=== PATIENT | female | born 2005 | race Caucasian/White ===

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

== ENCOUNTER 2025-02-06 15:36 | Emergency (ER) | payer SELFPAY ==
[2025-02-06 15:44] VITALS: BP 106/70; PULSE 67; RESP 17; TEMP 36.5; O2SAT 100; BMI 35.0
[2025-02-06 16:14] LABS: Basophils # 0.1 10^3/uL (0.0-0.1); Basophils % 0.9 %; Eosinophils # 0.4 10^3/uL (0.0-0.8); Eosinophils % 3.2 %; Hematocrit 47.7 % (36-47); Lymphocytes # 3.2 10^3/uL (1.5-6.5); Lymphocytes % 25.8 %; Mean Corpuscular HGB Conc 33.3 g/dL (30-55); Mean Corpuscular Hemoglobin 29.1 pg (27-33); Mean Corpuscular Volume 87.4 fl (85-98); Mean Platelet Volume 10.4 fL (7.4-10.4); Monocytes # 0.7 10^3/uL (0.2-0.9); Monocytes % 5.3 %; Neutrophils # 8.12 10^3/uL (1.8-8.0); Neutrophils % 64.6 %; Nucleated Red Blood Cells % 0 %; Platelet Count 336 10^3/cmm (157-399); Red Blood Count 5.46 10^6/uL (3.85-5.65); Red Cell Distribution Width 13.3 % (12.1-15.1); White Blood Count 12.56 10^3/uL (4.5-13.0)
[2025-02-06 16:32] VITALS: BP 128/80; PULSE 81; RESP 16; O2SAT 98
[2025-02-06 16:40] LABS: Alanine Aminotransferase 13 U/L (0-33); Albumin Level 4.8 g/dL (3.5-5.2); Alkaline Phosphatase 80 U/L (35-105); Anion Gap 18.7 (5-19); Aspartate Amino Transferase 16 U/L (0-32); Blood Urea Nitrogen 11 mg/dL (6-20); Calcium 9.5 mg/dL (8.5-10.5); Carbon Dioxide 19 mmol/L (22-29); Chloride 104 mmol/L (98-107); Creatinine Clr Calc Pharmacy 120.2852; Globulin 3.2 g/dL (1.3-4.6); Glomerular Filtration Rate 92.4 mL/min (90-130); Glucose 81 mg/dL (65-115); Lipase 30 U/L (13-60); Osmolality Calculated 284 mOsm/kg (285-295); Potassium 3.7 mmol/L (3.5-5.1); Sodium 138 mmol/L (136-145); Total Bilirubin 0.4 mg/dL (0.15-1.2)
[2025-02-06] MEDS: ondansetron 2 mg/ML SDV 2 mL 4 MG IVP (16:47)
[2025-02-06] MEDS: sodium chloride 0.9% 1,000 ML 999 ML IV (16:47)
--- NOTE | 2025-02-06 16:53 | ED_ITS ---
Documented by User: Amaury Cordova DO 02/07/25 06:37 HPI - Nausea/Vomiting/Diarrhea 2 General: Chief complaint: Nausea/Vomiting/Diarrhea Stated complaint: NVD Time Seen by Provider: 02/06/25 16:09 History of Present Illness: 19-year-old female presents emergency ro om complaining epigastric pain intermittently for the last month she notes it improves when she vomits. She denies any medic easy melena hematemesis cough cramps no dysuria urgency or frequency. Associated nausea: Yes Associated symtoms: Reports nausea; Denies chest pain or dysuria Related Data Previous Rx's ?Medication ?Instructions ?Recorded nebulizers (Compact Compressor #1 ea 12/18/21 Nebulizer) omeprazole magnesium 10 mg oral 20 mg PO DAILY #30 ea 08/09/24 suspension,delayed release (Prilosec) escitalopram oxalate 10 mg tablet See Rx Instructions .Route 09/11/24 .COMPLEX #30 tabs etonogestrel 0.12 mg-ethinyl 1 vag ring vaginal .once a month 09/11/24 estradiol 0.015 mg/24 hr vaginal #3 ea ring (NuvaRing) ondansetron 4 mg disintegrating 4 mg PO Q8H PRN nausea and 02/06/25 tablet vomiting 5 days #30 tabs Allergies Allergy/AdvReac Type Severity Reaction Status Date / Time influenza virus vacc Allergy Mild rash Verified 09/11/24 10:00 trivalent, split (From Fluzone) Penicillins Allergy Mild Hives Verified 09/11/24 10:00 Alpha-Gal Allergy ALGY-Hives Verified 09/11/24 10:00 (Vhlmklwdv-Zcinj-5,3-Gala (Lzmhecofn-Rawmi-3,3-Galactose (Alph) Review of Systems 2 Const: Denies: fever(s) or chills Card: Denies: chest pain Resp: Denies: dyspnea GI: Reports: abdominal pain, nausea and vomiting : Denies: dysuria, urinary frequency or urinary urgency Musc: Denies: neck pain or back pain Skin/Breast: Denies: rash PFSH ED 2 PFSH: Medical History URI with cough and congestion Allergy to alpha-gal PCOS (polycystic ovarian syndrome) History of COVID-19 February No pertinent past medical history neghx: htn,dm,thyroid,dvt/pe Anxiety Asthma Surgical History No pertinent past surgical history Family History Grandfather Colon cancer Maternal great grandfather Diabetes Maternal grandfather Heart disease Maternal grandfather Hyperlipidemia Maternal grandfather Hypertension Maternal grandfather Brother Hypertension Grandmother Stroke Maternal grandmother Denies family history of Ovarian cancer Breast cancer Family history of thyroid problem Uterine cancer Social History Smoking and tobacco/nicotine status: never used tobacco/nicotine Physical Exam 2 Const: GENERAL APPEARANCE: cooperative ORIENTATION/CONSCIOUSNESS: Yes awake, Yes oriented to person, Yes oriented to place and Yes oriented to time HENMT: COMMON NORMALS: normocephalic, atraumatic and hearing grossly normal bilaterally HEAD & SCALP: normocephalic and atraumatic Resp: COMMON NORMALS: normal respiratory effort, No retractions, No use of accessory muscles and clear to auscultation bilaterally AUSCULTATION: clear to auscultation bilaterally Cardio: COMMON NORMALS: regular rate, regular rhythm and No murmurs present (Cardio) RATE: regular rate RHYTHM: regular rhythm GI: COMMON NORMALS: Soft to palpation and No hepatosplenomegaly present A USCULTATION: Yes normoactive bowel sounds PALPATION: Yes Soft to palpation, No Tenderness to palpation present (GI), No Guarding due to palpation present (GI) and Yes No hepatosplenomegaly present Extremity: COMMON NORMALS: normal to inspection, capillary refill normal, no clubbing, cyanosis or edema, no calf tenderness and no pedal edema Neuro: SENSORIUM/ORIENTATION: Yes oriented to person, Yes oriented to place and Yes oriented to time Skin: COMMON NORMALS: no rashes or lesions noted GENERAL SKIN EXAM: no rashes or lesions noted Course 2 Vital Signs: Vital signs: Vital Signs Temperature 97.7 F 02/06/25 15:44 Pulse Rate 61 02/06/25 20:35 Respiratory Rate 16 02/06/25 20:35 Blood Pressure 108/61 02/06/25 20:35 Pulse Oximetry 99 02/06/25 20:35 Oxygen Delivery Me thod Room Air 02/06/25 15:44 MDM - Nausea/Vomiting/Diarrhea Medical Decision Making Care signed out to Dr. Maher at change of shift. See final notes for diagnosis and disposition. Patient signed out to me pending CT scan. Labs are reassuring. She has a trace blood in her urine and she states that she is currently on her period and likely this is the cause. Noncontrasted CT of the abdomen pelvis shows nothing acute. Symptoms are better with Zofran. We discussed that she has intermittent abdominal pain and nausea which is lasted roughly 1 month. I am uncertain of the etiology but do not feel this is acutely related to her alpha gal and would recommend continuing her current medication regimen. She agrees and will be discharged in stable condition with a course of Zofran and follow-up to primary care. Lab Data 02/06/25 15:58 02/06/25 15:58 Radiology Impressions Abdomen/Pelvis CT 02/06/25 17:46 IMPRESSION: 1. Limited noncontrast examination without CT evidence of acute intra-abdominal or pelvic pathology. 2. Additional findings, as above. Laboratory Results WBC 12.56 10^3/uL (4.5-13.0) 02/06/25 15:58 RBC 5.46 10^6/uL (3.85-5.65) 02/06/25 15:58 Hgb 15.90 g/dL (12.4-14.8) H 02/06/25 15:58 Hct 47.7 % (36-47) H 02/06/25 15:58 MCV 87.4 fl (85-98) 02/06/25 15:58 MCH 29.1 pg (27-33) 02/06/25 15:58 MCHC 33.3 g/dL (30-55) 02/06/25 15:58 RDW 13.3 % (12.1-15.1) 02/06/25 15:58 Plt Count 336 10^3/cmm (157-399) 02/06/25 15:58 MPV 10.4 fL (7.4-10.4) 02/06/25 15:58 Neut % (Auto) 64.6 % 02/06/25 15:58 Lymph % (Auto) 25.8 % 02/06/25 15:58 [place] % (Auto) 5.3 % 02/06/25 15:58 Eos % (Auto) 3.2 % 02/06/25 15:58 Baso % (Auto) 0.9 % 02/06/25 15:58 Neut # (Auto) 8.12 10^3/uL (1.8-8.0) H 02/06/25 15:58 Lymph # (Auto) 3.2 10^3/uL (1.5-6.5) 02/06/25 15:58 [place] # (Auto) 0.7 10^3/uL (0.2-0.9) 02/06/25 15:58 Eos # (Auto) 0.4 10^3/uL (0.0-0.8) 02/06/25 15:58 Baso # (Auto) 0.1 10^3/uL (0.0-0.1) 02/06/25 15:58 Nucleated RBC % (auto) 0 % 02/06/25 15:58 Nucleated RBCs # 0.0 /100WBC 02/06/25 15:58 Sodium 138 mmol/L (136-145) 02/06/25 15:58 Potassium 3.7 mmol/L (3.5-5.1) 02/06/25 15:58 Chloride 104 mmol/L (98-107) 02/06/25 15:58 Carbon Dioxide 19 mmol/L (22-29) L 02/06/25 15:58 Anion Gap 18.7 (5-19) 02/06/25 15:58 BUN 11 mg/dL (6-20) 02/06/25 15:58 Creatinine 0.8 mg/dL (0.5-0.9) 02/06/25 15:58 GFR Calculation 92.4 mL/min (90-130) 02/06/25 15:58 Glucose 81 mg/dL (65-115) 02/06/25 15:58 Calculated Osmolality 284 mOsm/kg (285-295) L 02/06/25 15:58 Calcium 9.5 mg/dL (8.5-10.5) 02/06/25 15:58 Total Bilirubin 0.4 mg/dL (0.15-1.2) 02/06/25 15:58 AST 16 U/L (0-32) 02/06/25 15:58 ALT 13 U/L (0-33) 02/06/25 15:58 Alkaline Phosphatase 80 U/L (35-105) 02/06/25 15:58 Total Protein 8.0 g/dL (6.6-8.7) 02/06/25 15:58 Albumin 4.8 g/dL (3.5-5.2) 02/06/25 15:58 Globulin 3.2 g/dL (1.3-4.6) 02/06/25 15:58 Lipase 30 U/L (13-60) 02/06/25 15:58 HCG, Qual Negative (Negative) 02/06/25 15:58 Urine Color Dark yellow (Yellow) A 02/06/25 16:49 Urine Appearance Turbid (CLEAR) A 02/06/25 16:49 Urine pH 5.5 (5-7) 02/06/25 16:49 Ur Specific [place] 1.037 (1.005-1.030) H 02/06/25 16:49 Urine Protein 1+ (Negative) A 02/06/25 16:49 Urine Glucose (UA) Negative (Normal) 02/06/25 16:49 Urine Ketones 2+ (Negative) H 02/06/25 16:49 Urine Blood 3+ (Negative) A 02/06/25 16:49 Urine Nitrate Negative (Negative) 02/06/25 16:49 Urine Bilirubin Negative (Negative) 02/06/25 16:49 Urine Urobilinogen 1.0 mg/dL (Negative) 02/06/25 16:49 Ur Leukocyte Esterase Trace (Negative) A 02/06/25 16:49 Urine RBC 51-100 /hpf (0-2) H 02/06/25 16:49 Urine WBC 11-20 /hpf (0-5) H 02/06/25 16:49 Ur Squamous Epith Cells 0-5 /hpf (0-5) 02/06/25 16:49 Amorphous Sediment Not Reportable 02/06/25 16:49 Urine Bacteria 1+ /hpf (NONE) H 02/06/25 16:49 Hyaline Casts 9.07 /lpf 02/06/25 16:49 Discharge Plan Discharge Patient Disposition: Home Clinical Impression: Abdominal pain, Nausea & vomiting Condition: Stable Prescriptions: New ondansetron 4 mg tablet,disintegrating 4 mg PO Q8H PRN (Reason: nausea and vomiting) 5 Days Qty: 30 0RF No Action etonogestrel-ethinyl estradiol [NuvaRing] 0.12-0.015 mg/24 hr ring 1 vag ring vaginal .once a month Qty: 3 3RF (DME) Compact Compressor Nebulizer Misc See Rx Instructions .Route Qty: 1 0RF Rx Instructions: Daily Prilosec 10 mg susp,delayed release for recon 20 mg PO DAILY Qty: 30 0RF escitalopram oxalate 10 mg tablet See Rx Instructions .ROUTE .COMPLEX Qty: 30 0RF Dose Instruction: TAKE 1 TABLET BY MOUTH DAILY Rx Instructions: TAKE 1 TABLET BY MOUTH DAILY Discharge Orders: Discharge ED (Routine); Ordered 02/06/25 Ordered By: Jesu Maher Referrals: Dain Wynn FNP [Primary Care Provider, Family Practice] Discharge Diet: Advance as tolerated Discharge Activity: Increase activity as tolerated Patient Instructions: Abdominal Pain (ED) Stand Alone Forms: Work/School Release Print Language: Divehi Sign Out Sign Out Data: Patient Sign Out occurred on 02/06/25 at 18:18. Patient's care was discussed, and care was transferred from Amaury Cordova DO to Jesu Maher MD. Coding Level of Care Code ED Pharmacy Intake Technician for Chg Fwd Documented by User: Jesu Maher MD 02/06/25 20:30 HPI - Nausea/Vomiting/Diarrhea 2 General: Chief complaint: Nausea/Vomiting/Diarrhea Stated complaint: NVD Time Seen by Provider: 02/06/25 16:09 Related Data Previous Rx's ?Medication ?Instructions ?Recorded nebulizers (Compact Compressor #1 ea 12/18/21 Nebulizer) omeprazole magnesium 10 mg oral 20 mg PO DAILY #30 ea 08/09/24 suspension,delayed release (Prilosec) escitalopram oxalate 10 mg tablet See Rx Instructions .Route 09/11/24 .COMPLEX #30 tabs etonogestrel 0.12 mg-ethinyl 1 vag ring vaginal .once a month 09/11/24 estradiol 0.015 mg/24 hr vaginal #3 ea ring (NuvaRing) ondansetron 4 mg disintegrating 4 mg PO Q8H PRN nausea and 02/06/25 tablet vomiting 5 days #30 tabs Allergies Allergy/AdvReac Type Severity Reaction Status Date / Time influenza virus vacc Allergy Mild rash Verified 09/11/24 10:00 trivalent, split (From Fluzone) Penicillins Allergy Mild Hives Verified 09/11/24 10:00 Alpha-Gal Allergy ALGY-Hives Verified 09/11/24 10:00 (Hlgavhnbd-Guonu-2,3-Gala (Ymelveykj-Luuzc-5,3-Galactose (Alph) PFSH ED 2 PFSH: Medical History URI with cough and congestion Allergy to alpha-gal PCOS (polycystic ovarian syndrome) History of COVID-19 February No pertinent past medical history neghx: htn,dm,thyroid,dvt/pe Anxiety Asthma Surgical History No pertinent past surgical history Family History Grandfather Colon cancer Maternal great grandfather Diabetes Maternal grandfather Heart disease Maternal grandfather Hyperlipidemia Maternal grandfather Hypertension Maternal grandfather Brother Hypertension Grandmother Stroke Maternal grandmother Denies family history of Ovarian cancer Breast cancer Family history of thyroid problem Uterine cancer Social History Smoking and tobacco/nicotine status: never used tobacco/nicotine Course 2 Vital Signs: Vital signs: Vital Signs Temperature 97.7 F 02/06/25 15:44 Pulse Rate 61 02/06/25 20:35 Respiratory Rate 16 02/06/25 20:35 Blood Pressure 108/61 02/06/25 20:35 Pulse Oximetry 99 02/06/25 20:35 Oxygen Delivery Ne thod Room Air 02/06/25 15:44 MDM - Nausea/Vomiting/Diarrhea Medical Decision Making Patient signed out to me pending CT scan. Labs are reassuring. She has a trace blood in her urine and she states that she is currently on her period and likely this is the cause. Noncontrasted CT of the abdomen pelvis shows nothing acute. Symptoms are better with Zofran. We discussed that she has intermittent abdominal pain and nausea which is lasted roughly 1 month. I am uncertain of the etiology but do not feel this is acutely related to her alpha gal and would recommend continuing her current medication regimen. She agrees and will be discharged in stable condition with a course of Zofran and follow-up to primary care. Lab Data 02/06/25 15:58 02/06/25 15:58 Radiology Impressions Abdomen/Pelvis CT 02/06/25 17:46 IMPRESSION: 1. Limited noncontrast examination without CT evidence of acute intra-abdominal or pelvic pathology. 2. Additional findings, as above. Laboratory Results WBC 12.56 10^3/uL (4.5-13.0) 02/06/25 15:58 RBC 5.46 10^6/uL (3.85-5.65) 02/06/25 15:58 Hgb 15.90 g/dL (12.4-14.8) H 02/06/25 15:58 Hct 47.7 % (36-47) H 02/06/25 15:58 MCV 87.4 fl (85-98) 02/06/25 15:58 MCH 29.1 pg (27-33) 02/06/25 15:58 MCHC 33.3 g/dL (30-55) 02/06/25 15:58 RDW 13.3 % (12.1-15.1) 02/06/25 15:58 Plt Count 336 10^3/cmm (157-399) 02/06/25 15:58 MPV 10.4 fL (7.4-10.4) 02/06/25 15:58 Neut % (Auto) 64.6 % 02/06/25 15:58 Lymph % (Auto) 25.8 % 02/06/25 15:58 [place] % (Auto) 5.3 % 02/06/25 15:58 Eos % (Auto) 3.2 % 02/06/25 15:58 Baso % (Auto) 0.9 % 02/06/25 15:58 Neut # (Auto) 8.12 10^3/uL (1.8-8.0) H 02/06/25 15:58 Lymph # (Auto) 3.2 10^3/uL (1.5-6.5) 02/06/25 15:58 [place] # (Auto) 0.7 10^3/uL (0.2-0.9) 02/06/25 15:58 Eos # (Auto) 0.4 10^3/uL (0.0-0.8) 02/06/25 15:58 Baso # (Auto) 0.1 10^3/uL (0.0-0.1) 02/06/25 15:58 Nucleated RBC % (auto) 0 % 02/06/25 15:58 Nucleated RBCs # 0.0 /100WBC 02/06/25 15:58 Sodium 138 mmol/L (136-145) 02/06/25 15:58 Potassium 3.7 mmol/L (3.5-5.1) 02/06/25 15:58 Chloride 104 mmol/L (98-107) 02/06/25 15:58 Carbon Dioxide 19 mmol/L (22-29) L 02/06/25 15:58 Anion Gap 18.7 (5-19) 02/06/25 15:58 BUN 11 mg/dL (6-20) 02/06/25 15:58 Creatinine 0.8 mg/dL (0.5-0.9) 02/06/25 15:58 GFR Calculation 92.4 mL/min (90-130) 02/06/25 15:58 Glucose 81 mg/dL (65-115) 02/06/25 15:58 Calculated Osmolality 284 mOsm/kg (285-295) L 02/06/25 15:58 Calcium 9.5 mg/dL (8.5-10.5) 02/06/25 15:58 Total Bilirubin 0.4 mg/dL (0.15-1.2) 02/06/25 15:58 AST 16 U/L (0-32) 02/06/25 15:58 ALT 13 U/L (0-33) 02/06/25 15:58 Alkaline Phosphatase 80 U/L (35-105) 02/06/25 15:58 Total Protein 8.0 g/dL (6.6-8.7) 02/06/25 15:58 Albumin 4.8 g/dL (3.5-5.2) 02/06/25 15:58 Globulin 3.2 g/dL (1.3-4.6) 02/06/25 15:58 Lipase 30 U/L (13-60) 02/06/25 15:58 HCG, Qual Negative (Negative) 02/06/25 15:58 Urine Color Dark yellow (Yellow) A 02/06/25 16:49 Urine Appearance Turbid (CLEAR) A 02/06/25 16:49 Urine pH 5.5 (5-7) 02/06/25 16:49 Ur Specific [place] 1.037 (1.005-1.030) H 02/06/25 16:49 Urine Protein 1+ (Negative) A 02/06/25 16:49 Urine Glucose (UA) Negative (Normal) 02/06/25 16:49 Urine Ketones 2+ (Negative) H 02/06/25 16:49 Urine Blood 3+ (Negative) A 02/06/25 16:49 Urine Nitrate Negative (Negative) 02/06/25 16:49 Urine Bilirubin Negative (Negative) 02/06/25 16:49 Urine Urobilinogen 1.0 mg/dL (Negative) 02/06/25 16:49 Ur Leukocyte Esterase Trace (Negative) A 02/06/25 16:49 Urine RBC 51-100 /hpf (0-2) H 02/06/25 16:49 Urine WBC 11-20 /hpf (0-5) H 02/06/25 16:49 Ur Squamous Epith Cells 0-5 /hpf (0-5) 02/06/25 16:49 Amorphous Sediment Not Reportable 02/06/25 16:49 Urine Bacteria 1+ /hpf (NONE) H 02/06/25 16:49 Hyaline Casts 9.07 /lpf 02/06/25 16:49 All radiology interpretation(s) finalized by discharge Discharge Plan Discharge Patient Disposition: Home Clinical Impression: Abdominal pain, Nausea & vomiting Condition: Stable Prescriptions: New ondansetron 4 mg tablet,disintegrating 4 mg PO Q8H PRN (Reason: nausea and vomiting) 5 Days Qty: 30 0RF No Action etonogestrel-ethinyl estradiol [NuvaRing] 0.12-0.015 mg/24 hr ring 1 vag ring vaginal .once a month Qty: 3 3RF (DME) Compact Compressor Nebulizer Misc See Rx Instructions .Route Qty: 1 0RF Rx Instructions: Daily Prilosec 10 mg susp,delayed release for recon 20 mg PO DAILY Qty: 30 0RF escitalopram oxalate 10 mg tablet See Rx Instructions .ROUTE .COMPLEX Qty: 30 0RF Dose Instruction: TAKE 1 TABLET BY MOUTH DAILY Rx Instructions: TAKE 1 TABLET BY MOUTH DAILY Discharge Orders: Discharge ED (Routine); Ordered 02/06/25 Ordered By: eJsu Maher Referrals: Dain Wynn FNP [Primary Care Provider, Family Practice] Discharge Diet: Advance as tolerated Discharge Activity: Increase activity as tolerated Patient Instructions: Abdominal Pain (ED) Stand Alone Forms: Work/School Release Print Language: Divehi Sign Out Sign Out Data: Patient Sign Out occurred on 02/06/25 at 18:18. Patient's care was discussed, and care was transferred from Amaury Cordova DO to Jesu Maher MD. Coding Level of Care Code ED Pharmacy Intake Technician for Nina Montoya
[2025-02-06 17:06] LABS: HCG, Serum Qual Negative (Negative)
[2025-02-06 17:23] LABS: Bilirubin Urine Negative (Negative); Blood Urine 3+ (Negative); Glucose Urine UA Negative (Normal); Ketones Urine 2+ (Negative); Leukocyte Esterase Urine Trace (Negative); Nitrate Urine Negative (Negative); Protein Urine 1+ (Negative); Urine Appearance Turbid (CLEAR); Urine Color Dark Yellow (Yellow); pH Urine 5.5 (5-7)
[2025-02-06 17:30] LABS: Add Urine Microscopic? YES; Bacteria Urine 1+ /hpf; Hyaline Casts Urine 9.07 /lpf; RBC Urine 51-100 /hpf (0-2); Squamous Epithelial Cell Urine 0-5 /hpf (0-5)
[2025-02-06 17:43] LABS: Specific Gravity, Urine 1.037 (1.005-1.030); UA Slide Review UA Slide Review Perf
[2025-02-06 17:44] LABS: Add Urine Culture? Yes
--- NOTE | 2025-02-06 17:46 | CTR_ITS ---
PROCEDURE INFORMATION: Exam: CT Abdomen And Pelvis Without Contrast Exam date and time: 02/06/2025 5:59 PM Age: 19 years old Clinical indication: Abdominal pain; Generalized; Additional info: Hematuria TECHNIQUE: Imaging protocol: Computed tomography of the abdomen and pelvis without contrast. Axial, coronal and sagittal reformatted images were created and reviewed. Radiation optimization: All CT scans at this facility use at least one of these dose optimization techniques: automated exposure control; mA and/or kV adjustment per patient size (includes targeted exams where dose is matched to clinical indication); or iterative reconstruction. COMPARISON: No relevant prior studies available. RADIATION DOSE METRICS: Total DLP (mGy-cm): 847.03 FINDINGS: Lungs: Linear stranding and groundglass at the lung bases, likely due to atelectasis. Heart: Trace pericardial effusion. Liver: Unremarkable. Gallbladder and biliary ducts: No radiodense gallstones. No biliary ductal dilatation. Pancreas: Unremarkable. Spleen: Unremarkable. Adrenal glands: Normal. No mass. Kidneys and ureters: No mass. No radiodense calculi. No hydronephrosis. Stomach and bowel: No bowel wall thickening. No obstruction. No pneumatosis. Appendix: Normal. Intraperitoneal space: No free fluid. No organized fluid collection. No free air. Vasculature: Unremarkable. No aneurysm. Lymph nodes: Small mesenteric lymph nodes, nonspecific in appearance. No pathologically enlarged lymph nodes. Urinary bladder: Unremarkable as visualized. Reproductive: Probable involuting right ovarian corpus luteal cyst versus dominant follicle. Bones/joints: No acute osseous abnormality. Soft tissues: Unremarkable. CT/CT kidney stone [id number] IMPRESSION: 1. Limited noncontrast examination without CT evidence of acute intra-abdominal or pelvic pathology. 2. Additional findings, as above.
[2025-02-06 18:10] VITALS: BP 106/70; PULSE 74; RESP 16; O2SAT 100
[2025-02-06 19:00] VITALS: BP 111/69; PULSE 63; RESP 16; O2SAT 100
[2025-02-06 20:05] VITALS: BP 108/61; PULSE 65; RESP 16; O2SAT 98
[2025-02-06 20:35] VITALS: BP 108/61; PULSE 61; RESP 16; O2SAT 99
== END 2025-02-06 20:38 | disposition home or self-care (01) ==
PROVIDERS: Physician Assistant; Emergency Provider Student in an Organized Health Care Education/Training Program; PCP Registered Nurse
DX: R10.9 Unspecified abdominal pain (principal); R11.2 Nausea with vomiting, unspecified
CPT/HCPCS: 36415; 74176; 80053; 81001; 83690; 84703; 85025; 87086; 96361; 96374; 99285; J2405; J7030